=== PATIENT | female | born 1950 | race Caucasian/White ===

== ENCOUNTER 2019-09-18 12:52 | Outpatient (CLI) | payer MEDICARE, SELFPAY ==
--- NOTE | ~2019-09-18 | CT_ITS ---
CORRECTED REPORT ORDER CHANGE TITLE CHANGE 09/19/2019 [facility] [place]: CT LUNG SCREENING EXAM DATE: 09/18/2019 13:22 INDICATION: Personal history of nicotine dependence. TECHNIQUE: Spiral low dose CT of the chest without contrast. Axial, coronal and sagittal images were reviewed. The dose-length product (DLP) for this examination was 440.31 mGy-cm. The exposure was tailored according to patient size (auto mA exposure control), and iterative reconstruction (ASIR) was used as additional dose reduction technique. Comparison is made to prior examination from 08/29/2018. FINDINGS: Again there are several right basilar nodules up to 4 mm in size, stable consistent with noncalcified granulomata. Several calcified granulomas. There is mild emphysema and hyperinflation. Tracheobronchial tree is patent. There is no mediastinal, hilar or axillary lymphadenopathy. There are no pleural or pericardial effusions. There is no pneumothorax. Heart normal in size. There is moderate coronary arterial calcification, arterial sclerosis. There is small sliding gastroesophageal hiatal hernia. Cholecystectomy clips. Mild hepatic steatosis. Splenic granulomata. There is mild to moderate thoracic spondylosis without osteoblastic or osteolytic lesions identified. IMPRESSION: Lung-RADS category 2, benign appearance or behavior (<1% chance of malignancy); recommend continued LDCT screening in 1 year. Reviewed, dictated and finalized at location B. MTDD
--- NOTE | ~2019-09-18 | MM_ITS ---
EXAMINATION: MM screening yeni BI w juan alberto HISTORY: Screening mammogram TECHNIQUE: Craniocaudal and mediolateral oblique 3-D tomosynthesis images were obtained and synthetic 2-D images were generated. CAD analysis was submitted and interpreted. COMPARISON: 06/12/2018, 06/07/2017, 04/12/2015 bilateral digital screening mammogram examinations BREAST PARENCHYMAL COMPOSITION: The breasts are almost entirely fatty. FINDINGS: There is no evidence of suspicious mass, calcification, or architectural distortion to sugg est malignancy in either breast. There has been no suspicious interval change. IMPRESSION: 1. No mammographic evidence of malignancy. 2. Recommend routine screening mammography in one year. BI-RADS Category 1: Negative Reviewed, dictated and finalized at location A.
== END 2019-09-18 12:53 | disposition home or self-care (01) ==
LOC: CHSIMG 12:56
PROVIDERS: PCP Internal Medicine; Visit Provider Internal Medicine
DX: Z12.31 Encounter for screening mammogram for malignant neoplasm of breast (principal); Z12.2 Encounter for screening for malignant neoplasm of respiratory organs; Z87.891 Personal history of nicotine dependence
CPT/HCPCS: 71250; 77063; 77067; G0297

== ENCOUNTER 2019-09-19 08:06 | Outpatient (CLI) | payer MEDICARE, SELFPAY ==
[2019-09-19 09:21] LABS: Alanine Aminotransferase 26 U/L (14-59); Albumin Level 3.6 g/dL (3.4-5.0); Alkaline Phosphatase 60 U/L (46-116); Aspartate Amino Transferase 19 U/L (15-37); Bilirubin,Total 0.3 mg/dL (0.00-1.00); Blood Urea Nitrogen 16 mg/dL (7-18); Calcium 9.9 mg/dL (8.5-10.1); Carbon Dioxide 28 mmol/L (21-32); Chloride 102 mmol/L (98-108); Cholesterol 184 mg/dL (0-200); Estimated Glomerular Filt Rate 59; Glucose 146 mg/dL (70-99); HDL Direct 40 mg/dL (40-60); LDL Cholesterol Calculated 93 mg/dL (<130); Osmolality Calculated 294 mOsm/kg (285-295); Sodium 140 mmol/L (136-145); Total Protein 6.8 g/dL (6.4-8.2); Triglycerides 257 mg/dL (0-150)
== END 2019-09-19 08:07 | disposition home or self-care (01) ==
LOC: CHSLAB 08:08
PROVIDERS: PCP Internal Medicine; Visit Provider Internal Medicine
DX: E78.5 Hyperlipidemia, unspecified (principal); I10 Essential (primary) hypertension; R73.03 Prediabetes
CPT/HCPCS: 36415; 80053; 80061; 83036

== ENCOUNTER 2019-12-27 06:47 | Emergency (ER) | payer MEDICARE, SELFPAY ==
--- NOTE | ~2019-12-27 | XR_ITS ---
EXAMINATION: XR knee LT 2V EXAM DATE: 12/27/2019 07:51 INDICATION: General knee pain for one day. TECHNIQUE: Frontal and lateral projections of the left knee. Comparison is made to prior examination from 10/13/2016. FINDINGS: No joint effusion. There is moderate left knee patellofemoral and medial tibiofemoral comp artment primary osteoarthritis. There are no acute fractures or dislocations identified. There is no subcutaneous gas. The soft tissue is unremarkable. There are no radiopaque foreign bodies. IMPRESSION: Moderate left knee osteoarthritis. Reviewed, dictated and finalized at location A.
[2019-12-27 07:09] VITALS: BP 156/76; PULSE 91; RESP 20; TEMP 36.4; O2SAT 97
[2019-12-27] MEDS: KETOROLAC (*BKC) 60 MG/2 ML VIAL IM (07:47)
--- NOTE | 2019-12-27 08:06 | ED.LOWEXIN ---
HPI - Extremity Injury (Lower) General Chief Complaint: Extremity Injury, Lower Stated Complaint: L leg pain Source: patient and family Mode of arrival: ambulatory Limitations: no limitations History of Present Illness HPI Narrative: this is a 69-year-old female that presents with some pain that started earlier this morning behind her left knee, pain she rates at about fiber 6 while resting and increases with some with weight-bearing. Patient has a history of left knee replacement status post surgery remotely. There is no warmth or tenderness to her left lower leg no calf swelling no visible varicose veins no pitting edema no redness or swelling or tenderness in the calf area. There is some pain elicited behind the left knee that could represent Coats cyst. Patient has no history of cancers no fever chills is active, nonsmoker no known injury. MD complaint: knee injury (Left knee pain) Onset (ago): hour(s) Injury: Left: knee Type of Injury: unknown Place: home Severity: moderate Severity scale (1-10): 6 Relieving factors: immobilization Exacerbating factors: weight bearing Context: walking Associated symptoms: ambulatory Other symptoms: none Related Data Home Medications Medication Instructions Recorded Confirmed ascorbic acid (vitamin C) [Vitamin 1 g PO DAILY 12/27/19 12/27/19 C] aspirin [Aspirin Low Dose] 81 mg PO DAILY 12/27/19 12/27/19 nortriptyline 25 mg PO DAILY 12/27/19 12/27/19 omeprazole 20 mg PO DAILY 12/27/19 12/27/19 simvastatin 40 mg PO DAILY 12/27/19 12/27/19 spironolacton-hydrochlorothiaz 1 tablet PO DAILY 12/27/19 12/27/19 torsemide 20 mg PO PRN PRN 12/27/19 12/27/19 tramadol 50 mg PO Q6H PRN 12/27/19 12/27/19 verapamil 120 mg PO DAILY 12/27/19 12/27/19 Allergies Allergy/AdvReac Type Severity Reaction Status Date / Time No Known Allergies Allergy Unknown Unverified 06/13/17 07:32 Review of Systems Review of Systems: All systems reviewed & are unremarkable except as noted in HPI and below PMFSH Past Medical History Medical History HLD (hyperlipidemia) HTN (hypertension) Family History Family History Other Cerebrovascular accident Family history of arthritis Family history of heart disease in male family member before age 55 Social History Social History Smoking status: Current every day smoker Alcohol intake: never Exam Const: General: no acute distress and alert Orientation/consciousness: patient oriented x3 HENMT: Head: normal to inspection Eyes: Conjunctivae: conjunctivae normal Pupils: Equal, round and reactive pupils present EOM: EOMs intact bilaterally Neck: Neck: normal visual inspection, no lymphadenopathy and no meningeal signs Chest: Chest palpation & inspection: normal inspection of the chest Resp: Effort & Inspection: normal respiratory effort Auscultation: clear to auscultation bilaterally Cardio: Rate: regular rate Rhythm: regular rhythm GI: GI Palp: Yes Soft to palpation Auscultation: normal bowel sounds : General: Yes no CVA tenderness Skin: General skin exam: normal color Rashes: no rashes Other: calf measurements on the left is 53 cm and on the right is some 52cm, measured 10cm below the tibial tuberosity. Currently there is no calf pain or tenderness there is no warmth or redness. Pain is elicited posterior left knee with palpation with no radiation no varicose veins no pitting edema. Extrem: General: normal to inspection Psych: Mental Status: mental status grossly normal Course Course Emergency Course: Patient's pain level has decreased while just resting. Discussed x-ray findings that are consistent with moderate osteoarthritis of the left knee. Vital Signs Vital signs: Vital Signs Temperature 36.4 C 12/27/19 07:09 Pulse Rate 91 12/27/19 07:09 Respira
[2019-12-27 08:15] VITALS: BP 144/78; PULSE 81; RESP 20; TEMP 36.4; O2SAT 97
== END 2019-12-27 08:18 | disposition home or self-care (01) ==
PROVIDERS: Emergency Provider Emergency Medicine; PCP Internal Medicine
DX: M17.12 Unilateral primary osteoarthritis, left knee (principal); M71.22 Synovial cyst of popliteal space [Baker], left knee; E78.5 Hyperlipidemia, unspecified; I10 Essential (primary) hypertension; F17.200 Nicotine dependence, unspecified, uncomplicated
CPT/HCPCS: 73560; 96372; 99283; J1885

== ENCOUNTER 2020-01-02 11:24 | Outpatient (RCR) | payer MEDICARE, SELFPAY ==
--- NOTE | 2020-01-02 11:57 | PTOPEVAL ---
Thank you for referring Oralia Contreras to [facility].? The patient is scheduled to be seen for therapy? ____x/week for ___ weeks. Please review, sign, date and return this plan of care HAMILTON. I agree with and certify that the following plan of care is medically necessary. Referring Physician Date Admitting Provider: Attending Provider: Alverto Goldstein MD Referring Provider: *PT Outpatient Evaluation Start: 01/02/20 11:26 Freq: Status: Active Protocol: Document 01/02/20 11:30 RUST (Rec: 01/02/20 11:55 RUST [email or web address]) Therapy Assessment Status Assessment Status Assessment Status Evaluation Outpatient Past Medical History Cardiovascular History Hx Hypercholesterolemia Yes Hx Hypertension Yes Respiratory History Hx Chronic Obstructive Pulmonary Disease Yes (COPD) Gastrointestinal History Hx Appendectomy Yes Hx Cholecystectomy Yes Hx Gastroesophageal Reflux Disease Yes Musculoskeletal History Hx Joint Replacement Yes: Rt. hip replacement Hx Orthopedic Surgery Yes: hammer toes, Lt. shoulder rotator cuff Hx Spinal Surgery Yes: neck surgery HEENT History Hx Tonsillectomy Yes Reproductive History Hx Hysterectomy Yes Evaluation Information Problem Diagnosis L knee OA Onset 01/02/20 Subjective Information patient reports she has been Query Text:As Reported By Patient/ having pain in the knees for Family years. she reports she is trying to put off having a knee replacement. she reports she was in the ER on sunday this past week due to inability to bear weight on the L LE. she reports she has increased pain with standing and walking (greatest with walking). she reports she tries to avoid stairs and walks up and down them 1 step at a time. patient reports she has had x-rays of the L knee this past sunday while in the ER. she reports she did have a cortizone injection today. Prior Level of Function Comments Additional Prior Level of Function patient reports she is trying Comments to put off knee replacement as long as possible. she reports she has
== END 2020-01-23 09:59 | disposition home or self-care (01) ==
LOC: CHSPT 11:24
PROVIDERS: PCP Internal Medicine; Visit Provider Internal Medicine
DX: M17.10 Unilateral primary osteoarthritis, unspecified knee (principal)
CPT/HCPCS: 97014; 97110; 97161; G0283

== ENCOUNTER 2020-04-10 07:33 | Outpatient (CLI) | payer MEDICARE, SELFPAY ==
[2020-04-10 07:49] LABS: Basophils Absolute Auto 0.09 K/mm3 (0.00-0.10); Basophils Percent Auto 0.9 % (0.0-1.0); Eosinophils Absolute Auto 0.35 K/mm3 (0.02-0.50); Eosinophils Percent Auto 3.5 % (1.0-6.0); Hematocrit 41.1 % (35.0-42.0); Hemoglobin 13.1 g/dL (11.7-13.8); Immature Granulocyte Absolute 0.06 K/mm3 (0.00-0.00); Immature Granulocyte Percent A 0.6 % (0.0-0.0); Lymphocytes Absolute Auto 2.02 K/mm3 (1.10-4.50); Lymphocytes Percent Auto 20.3 % (18.0-42.0); Mean Corpuscular HGB Conc 31.9 g/dL (32.0-36.0); Mean Corpuscular Hemoglobin 26.4 pg (27.0-31.0); Mean Corpuscular Volume 82.7 fL (78.0-102.0); Mean Platelet Volume 10.8 fl (9.2-11.8); Monocytes Absolute Auto 0.54 K/mm3 (0.10-0.90); Monocytes Percent Auto 5.4 % (2.0-11.0); Neutrophils Absolute Auto 6.9 K/mm3 (1.7-7.2); Neutrophils Percent Auto 69.3 % (50.0-70.0); Platelet Count Result 294 K/mm3 (150-420); Red Blood Count 4.97 M/mm3 (4.20-5.40); Red Cell Distribution Width 14.7 % (11.6-14.4)
[2020-04-10 08:05] LABS: Add Urine Microscopic? NO; Appearance Urine Clear (Clear); Bilirubin Urine Negative (Negative); Blood Urine Negative (Negative); Color Urine Yellow (Yellow); Glucose Urine UA Negative (Negative); Ketones Urine Negative (Negative); Leukocyte Esterase Ur Negative (Negative); Nitrate Urine Negative (Negative); Protein Urine Negative (Negative); Urobilinogen Urine 0.2 mg/dL (0.2-1.0); pH Urine 6.5 (5.0-8.0)
[2020-04-10 08:27] LABS: Creatinine Urine 81.19 mg/dL (40-278); Microalbumin Urine Random < 13.0 mg/L
[2020-04-10 08:34] LABS: Alanine Aminotransferase 26 U/L (14-59); Albumin Level 3.7 g/dL (3.4-5.0); Alkaline Phosphatase 77 U/L (46-116); Anion Gap 6 mmol/L (8-16); Aspartate Amino Transferase 11 U/L (15-37); Bilirubin,Total 0.3 mg/dL (0.00-1.00); Blood Urea Nitrogen 17 mg/dL (7-18); Calcium 9.2 mg/dL (8.5-10.1); Carbon Dioxide 30 mmol/L (21-32); Chloride 101 mmol/L (98-108); Cholesterol 175 mg/dL (0-200); Estimated Glomerular Filt Rate 60; Glucose 149 mg/dL (70-99); HDL Direct 42 mg/dL (40-60); LDL Cholesterol Calculated 96 mg/dL (<130); Osmolality Calculated 288 mOsm/kg (285-295); Potassium 4.2 mmol/L (3.5-5.1); Sodium 137 mmol/L (136-145); Thyroid Stimulating Hormone 0.85 uIU/mL (0.36-3.74); Triglycerides 187 mg/dL (0-150)
[2020-04-14 12:14] LABS: Hemoglobin A1C 6.6 % (<5.7)
== END 2020-04-10 07:34 | disposition home or self-care (01) ==
LOC: CHSLAB 07:36
PROVIDERS: PCP Internal Medicine; Visit Provider Internal Medicine
DX: E78.5 Hyperlipidemia, unspecified (principal); E11.9 Type 2 diabetes mellitus without complications; I10 Essential (primary) hypertension
CPT/HCPCS: 36415; 80053; 80061; 81003; 82043; 83036; 84443; 85025

== ENCOUNTER 2020-09-20 11:47 | Outpatient (CLI) | payer MEDICARE, SELFPAY ==
--- NOTE | ~2020-09-20 | MM_ITS ---
EXAMINATION: MM screening yeni BI w juan alberto HISTORY: Screening TECHNIQUE: Craniocaudal and mediolateral oblique 3-D tomosynthesis images were obtained and synthetic 2-D images were generated. CAD analysis was submitted and interpreted. COMPARISON: Comparison to multiple prior studies sequentially, with oldest reviewed study dated 07/2012. BREAST PARENCHYMAL COMPOSITION: The breasts are almost entirely fatty. FINDINGS: There is no evidence of suspicious mass, calcification, or architectural distortion to sugg est malignancy in either breast. There has been no suspicious interval change. IMPRESSION: 1. No mammographic evidence of malignancy. 2. Recommend routine screening mammography in one year. BI-RADS Category 1: Negative Reviewed, dictated and finalized at location A.
== END 2020-09-20 11:48 | disposition home or self-care (01) ==
LOC: CHSIMG 11:50
PROVIDERS: PCP Internal Medicine; Visit Provider Internal Medicine
DX: Z12.31 Encounter for screening mammogram for malignant neoplasm of breast (principal)
CPT/HCPCS: 77063; 77067

== ENCOUNTER 2020-10-15 07:46 | Outpatient (CLI) | payer MEDICARE, SELFPAY ==
[2020-10-15 08:17] LABS: Hemoglobin A1C 6.7 % (<5.7)
[2020-10-15 09:15] LABS: Alanine Aminotransferase 25 U/L (14-59); Albumin Level 3.4 g/dL (3.4-5.0); Alkaline Phosphatase 66 U/L (46-116); Anion Gap 15 mmol/L (8-16); Aspartate Amino Transferase 17 U/L (15-37); Bilirubin,Total 0.4 mg/dL (0.00-1.00); Blood Urea Nitrogen 21 mg/dL (7-18); Calcium 9.1 mg/dL (8.5-10.1); Carbon Dioxide 24 mmol/L (21-32); Chloride 103 mmol/L (98-108); Cholesterol 170 mg/dL (0-200); Estimated Glomerular Filt Rate > 60; Glucose 139 mg/dL (70-99); HDL Direct 39 mg/dL (40-60); LDL Cholesterol Calculated 89 mg/dL (<130); Osmolality Calculated 299 mOsm/kg (285-295); Potassium 3.7 mmol/L (3.5-5.1); Sodium 142 mmol/L (136-145); Total Protein 6.4 g/dL (6.4-8.2); Triglycerides 209 mg/dL (0-150)
== END 2020-10-15 07:47 | disposition home or self-care (01) ==
LOC: CHSLAB 07:48
PROVIDERS: PCP Internal Medicine; Visit Provider Internal Medicine
DX: E11.9 Type 2 diabetes mellitus without complications (principal); I10 Essential (primary) hypertension; E78.5 Hyperlipidemia, unspecified
CPT/HCPCS: 36415; 80053; 80061; 83036

== ENCOUNTER 2021-04-21 07:49 | Outpatient (CLI) | payer MEDICARE, SELFPAY ==
[2021-04-21 08:10] LABS: Basophils Percent Auto 1.3 % (0.0-1.0); Hematocrit 41.2 % (35.0-42.0); Hemoglobin 13.2 g/dL (11.7-13.8); Immature Granulocyte Absolute 0.06 K/mm3 (0.00-0.00); Immature Granulocyte Percent A 0.8 % (0.0-0.0); Lymphocytes Absolute Auto 1.66 K/mm3 (1.10-4.50); Mean Corpuscular Volume 81.3 fL (78.0-102.0); Mean Platelet Volume 10.9 fl (9.2-11.8); Monocytes Absolute Auto 0.59 K/mm3 (0.10-0.90); Monocytes Percent Auto 7.8 % (2.0-11.0); Neutrophils Absolute Auto 4.8 K/mm3 (1.7-7.2); Neutrophils Percent Auto 64.1 % (50.0-70.0); Platelet Count Result 373 K/mm3 (150-420); Red Blood Count 5.07 M/mm3 (4.20-5.40); Red Cell Distribution Width 14.4 % (11.6-14.4); White Blood Count 7.6 K/mm3 (4.8-10.8)
[2021-04-21 08:25] LABS: Hemoglobin A1C 6.9 % (<5.7)
[2021-04-21 08:39] LABS: Alanine Aminotransferase 34 U/L (14-59); Albumin Level 3.2 g/dL (3.4-5.0); Alkaline Phosphatase 66 U/L (46-116); Anion Gap 9 mmol/L (8-16); Aspartate Amino Transferase 21 U/L (15-37); Bilirubin,Total 0.3 mg/dL (0.00-1.00); Blood Urea Nitrogen 18 mg/dL (7-18); Carbon Dioxide 27 mmol/L (21-32); Chloride 101 mmol/L (98-108); Cholesterol 153 mg/dL (0-200); Estimated Glomerular Filt Rate 55; Glucose 118 mg/dL (70-99); HDL Direct 41 mg/dL (40-60); LDL Cholesterol Calculated 87 mg/dL (<130); Osmolality Calculated 286 mOsm/kg (285-295); Potassium 4.1 mmol/L (3.5-5.1); Sodium 137 mmol/L (136-145); Total Protein 6.7 g/dL (6.4-8.2); Triglycerides 124 mg/dL (0-150); Uric Acid 6.7 mg/dL (2.6-6.0)
== END 2021-04-21 07:50 | disposition home or self-care (01) ==
LOC: CHSLAB 07:53
PROVIDERS: PCP Internal Medicine; Visit Provider Internal Medicine
DX: E78.5 Hyperlipidemia, unspecified (principal); I10 Essential (primary) hypertension; M10.9 Gout, unspecified; E11.9 Type 2 diabetes mellitus without complications
CPT/HCPCS: 36415; 80053; 80061; 83036; 84550; 85025

== ENCOUNTER 2021-04-25 12:41 | Outpatient (CLI) | payer MEDICARE, SELFPAY ==
--- NOTE | ~2021-04-25 | CT_ITS ---
EXAMINATION:CT lung screening DATE: 04/25/2021 13:01 INDICATION: Personal history of nicotine dependence. Smoker who quit 11 years ago with 36 pack year h istory. TECHNIQUE: Computed tomography (CT) of the chest was performed without intravenous contrast. Automate d exposure control and iterative reconstruction technique were employed. The dose-length product (DLP ) was 424.57 mGy-cm. COMPARISON: Chest CT 09/18/2019 FINDINGS: Again seen is a 4 mm nodule in right lower lobe. Again seen is a 5 mm nodule in right lower lobe. Again seen is a 6 mm nodule in right middle lobe. There are patchy groundglass opacities with septal thickening in all lobes, worst in the lower lobes. Calcified left lung nodules and calcified l eft hilar lymph nodes are consistent with old granulomatous disease. No pleural effusion. The heart s ize is normal. There are coronary artery calcifications. No pericardial effusion. There is a small sl iding hiatal hernia. Calcifications in the spleen are consistent with old granulomatous disease. Ther e are changes of cholecystectomy. There is diffuse hepatic steatosis. There is mild thoracic spondylo sis. IMPRESSION: 1. Lung-RADS category 2S: Benign appearance or behavior. Continue annual screening with noncontrast l ow-dose chest CT in 12 months. 2. New diffuse lung disease, likely COVID-19 pneumonia. Reviewed, dictated and finalized at location A. RDOUS MATERIALS ANALYST IMPRESSION: 1. Lung-RADS category 2S: Benign appearance or behavior. Continue annual screen ing with noncontrast low-dose chest CT in 12 months. 2. New diffuse lung disease, likely COVID-19 pneumonia.
== END 2021-04-25 12:42 | disposition home or self-care (01) ==
LOC: CHSIMG 12:43
PROVIDERS: PCP Internal Medicine; Visit Provider Internal Medicine
DX: Z12.2 Encounter for screening for malignant neoplasm of respiratory organs (principal); Z87.891 Personal history of nicotine dependence
CPT/HCPCS: 71271

== ENCOUNTER 2021-11-22 07:51 | Outpatient (CLI) | payer MEDICARE, SELFPAY ==
[2021-11-22 08:08] LABS: Basophils Absolute Auto 0.09 K/mm3 (0.00-0.10); Eosinophils Absolute Auto 0.36 K/mm3 (0.02-0.50); Eosinophils Percent Auto 4.1 % (1.0-6.0); Hematocrit 40.3 % (35.0-42.0); Hemoglobin 12.8 g/dL (11.7-13.8); Immature Granulocyte Absolute 0.06 K/mm3 (0.00-0.00); Immature Granulocyte Percent A 0.7 % (0.0-0.0); Lymphocytes Absolute Auto 2.33 K/mm3 (1.10-4.50); Lymphocytes Percent Auto 26.8 % (18.0-42.0); Mean Corpuscular HGB Conc 31.8 g/dL (32.0-36.0); Mean Corpuscular Hemoglobin 26.3 pg (27.0-31.0); Mean Corpuscular Volume 82.9 fL (78.0-102.0); Mean Platelet Volume 10.7 fl (9.2-11.8); Monocytes Absolute Auto 0.51 K/mm3 (0.10-0.90); Monocytes Percent Auto 5.9 % (2.0-11.0); Neutrophils Absolute Auto 5.3 K/mm3 (1.7-7.2); Neutrophils Percent Auto 61.5 % (50.0-70.0); Platelet Count Result 237 K/mm3 (150-420); Red Blood Count 4.86 M/mm3 (4.20-5.40); White Blood Count 8.7 K/mm3 (4.8-10.8)
[2021-11-22 08:16] LABS: Hemoglobin A1C 6.6 % (<5.7)
[2021-11-22 08:29] LABS: Alanine Aminotransferase 19 U/L (14-59); Albumin Level 3.3 g/dL (3.4-5.0); Alkaline Phosphatase 69 U/L (46-116); Anion Gap 6 mmol/L (8-16); Aspartate Amino Transferase 12 U/L (15-37); Bilirubin,Total 0.3 mg/dL (0.00-1.00); Blood Urea Nitrogen 21 mg/dL (7-18); Calcium 8.7 mg/dL (8.5-10.1); Carbon Dioxide 27 mmol/L (21-32); Chloride 104 mmol/L (98-108); Cholesterol 146 mg/dL (0-200); Estimated Glomerular Filt Rate > 60; Glucose 125 mg/dL (70-99); HDL Direct 37 mg/dL (40-60); LDL Cholesterol Calculated 67 mg/dL (<130); Osmolality Calculated 288 mOsm/kg (285-295); Potassium 3.7 mmol/L (3.5-5.1); Sodium 137 mmol/L (136-145); Total Protein 6.8 g/dL (6.4-8.2); Triglycerides 210 mg/dL (0-150)
== END 2021-11-22 07:52 | disposition home or self-care (01) ==
LOC: CHSLAB 07:54
PROVIDERS: PCP Internal Medicine; Visit Provider Internal Medicine
DX: E78.5 Hyperlipidemia, unspecified (principal); E11.9 Type 2 diabetes mellitus without complications; I10 Essential (primary) hypertension
CPT/HCPCS: 36415; 80053; 80061; 83036; 85025

== ENCOUNTER 2022-05-18 12:50 | Outpatient (CLI) | payer MEDICARE, SELFPAY ==
--- NOTE | ~2022-05-18 | CT_ITS ---
EXAMINATION:CT lung screening DATE: 05/18/2022 13:38 INDICATION: History of nicotine dependence. Smoker who quit 12 years ago with 36 pack year history. TECHNIQUE: Computed tomography (CT) of the chest was performed without intravenous contrast. Automate d exposure control and iterative reconstruction technique were employed. The dose-length product (DLP ) was 474.54 mGy-cm. COMPARISON: Chest CT 04/25/2021 FINDINGS: The lungs demonstrate mild atelectasis. There is mild emphysema. Again seen is a 5 mm nodul e in right lower lobe. Again seen is a 6 mm nodule in right middle lobe. Again seen is a 4 mm nodule in right lower lobe. Calcified left lung nodules and calcified left hilar lymph nodes are consistent with old granulomatous disease. No pleural effusion. The thyroid is enlarged. The heart size is beth l. There are coronary artery calcifications. No pericardial effusion. Main pulmonary artery is enlarg ed, consistent with pulmonary arterial hypertension. There is a small sliding hiatal hernia. Calcific ations in the spleen are consistent with old granulomatous disease. There are changes of cholecystect david. There is mild aortic atherosclerosis. There is mild thoracic spondylosis. IMPRESSION: 1. Lung-RADS category 2: Benign appearance or behavior. Continue annual screening with noncontrast lo w-dose chest CT in 12 months. Reviewed, dictated and finalized at location L. NOLOGY COACH IMPRESSION: 1. Lung-RADS category 2: Benign appearance or behavior. Continue annual screeni ng with noncontrast low-dose chest CT in 12 months.
--- NOTE | ~2022-05-18 | MM_ITS ---
EXAMINATION: MM screening yeni BI w juan alberto HISTORY: Screening mammogram TECHNIQUE: Craniocaudal and mediolateral oblique 3-D tomosynthesis images were obtained and synthetic 2-D images were generated. CAD analysis was submitted and interpreted. COMPARISON: 09/20/2020, 09/18/2019, 06/12/2018 bilateral screening mammogram examinations BREAST PARENCHYMAL COMPOSITION: The breasts are almost entirely fatty. FINDINGS: There is no evidence of suspicious mass, calcification, or architectural distortion to sugg est malignancy in either breast. There has been no suspicious interval change. IMPRESSION: 1. No mammographic evidence of malignancy. 2. Recommend routine screening mammography in one year. BI-RADS Category 1: Negative Reviewed, dictated and finalized at location A. E CUTTER AND SWAGER
== END 2022-05-18 12:51 | disposition home or self-care (01) ==
LOC: CHSIMG 12:52
PROVIDERS: PCP Internal Medicine; Visit Provider Internal Medicine
DX: Z12.31 Encounter for screening mammogram for malignant neoplasm of breast (principal); Z12.2 Encounter for screening for malignant neoplasm of respiratory organs; Z87.891 Personal history of nicotine dependence
CPT/HCPCS: 71271; 77063; 77067

== ENCOUNTER 2022-06-05 08:11 | Outpatient (CLI) | payer MEDICARE, SELFPAY ==
[2022-06-05 08:27] LABS: Basophils Absolute Auto 0.12 K/mm3 (0.00-0.10); Basophils Percent Auto 1.3 % (0.0-1.0); Eosinophils Percent Auto 4.5 % (1.0-6.0); Hematocrit 42.5 % (35.0-42.0); Hemoglobin 13.2 g/dL (11.7-13.8); Immature Granulocyte Absolute 0.04 K/mm3 (0.00-0.00); Immature Granulocyte Percent A 0.4 % (0.0-0.0); Lymphocytes Absolute Auto 2.06 K/mm3 (1.10-4.50); Mean Corpuscular HGB Conc 31.1 g/dL (32.0-36.0); Mean Corpuscular Volume 83.7 fL (78.0-102.0); Mean Platelet Volume 10.9 fl (9.2-11.8); Monocytes Absolute Auto 0.54 K/mm3 (0.10-0.90); Neutrophils Absolute Auto 5.8 K/mm3 (1.7-7.2); Neutrophils Percent Auto 64.8 % (50.0-70.0); Platelet Count Result 261 K/mm3 (150-420); Red Blood Count 5.08 M/mm3 (4.20-5.40); Red Cell Distribution Width 14.9 % (11.6-14.4)
[2022-06-05 08:39] LABS: Hemoglobin A1C 6.4 % (<5.7)
[2022-06-05 08:53] LABS: Creatinine Urine 184.43 mg/dL (40-278); Microalbumin Urine Random < 13.0 mg/L
[2022-06-05 09:30] LABS: Alanine Aminotransferase 28 U/L (14-59); Albumin Level 3.6 g/dL (3.4-5.0); Alkaline Phosphatase 75 U/L (46-116); Anion Gap 8 mmol/L (8-16); Aspartate Amino Transferase 15 U/L (15-37); Bilirubin,Total 0.4 mg/dL (0.00-1.00); Blood Urea Nitrogen 18 mg/dL (7-18); CRP 0.8 mg/dL (0.0-0.9); Calcium 9.1 mg/dL (8.5-10.1); Carbon Dioxide 29 mmol/L (21-32); Chloride 106 mmol/L (98-108); Cholesterol 146 mg/dL (0-200); Estimated Glomerular Filt Rate > 60; Glucose 133 mg/dL (70-99); HDL Direct 44 mg/dL (40-60); LDL Cholesterol Calculated 73 mg/dL (<130); Osmolality Calculated 299 mOsm/kg (285-295); Potassium 4.7 mmol/L (3.5-5.1); Sodium 143 mmol/L (136-145); Total Protein 6.8 g/dL (6.4-8.2); Triglycerides 147 mg/dL (0-150); Uric Acid 5.6 mg/dL (2.6-6.0)
== END 2022-06-05 08:12 | disposition home or self-care (01) ==
LOC: CHSLAB 08:13
PROVIDERS: PCP Internal Medicine; Visit Provider Internal Medicine
DX: I10 Essential (primary) hypertension (principal); E11.9 Type 2 diabetes mellitus without complications; E78.5 Hyperlipidemia, unspecified; M25.50 Pain in unspecified joint
CPT/HCPCS: 36415; 80053; 80061; 82043; 83036; 84550; 85025; 86140

== ENCOUNTER 2022-11-15 07:46 | Outpatient (CLI) | payer MEDICARE, SELFPAY ==
[2022-11-15 08:25] LABS: Hemoglobin A1C 6.4 % (<5.7)
[2022-11-15 08:48] LABS: Alanine Aminotransferase 15 U/L (14-59); Albumin Level 3.3 g/dL (3.4-5.0); Alkaline Phosphatase 79 U/L (46-116); Anion Gap 10 mmol/L (8-16); Aspartate Amino Transferase < 10 U/L (15-37); Bilirubin,Total 0.4 mg/dL (0.00-1.00); Blood Urea Nitrogen 16 mg/dL (7-18); Calcium 8.8 mg/dL (8.5-10.1); Carbon Dioxide 26 mmol/L (21-32); Chloride 105 mmol/L (98-108); Cholesterol 151 mg/dL (0-200); Estimated Glomerular Filt Rate 60; Glucose 147 mg/dL (70-99); HDL Direct 39 mg/dL (40-60); LDL Cholesterol Calculated 78 mg/dL (<130); Osmolality Calculated 296 mOsm/kg (285-295); Potassium 4.3 mmol/L (3.5-5.1); Sodium 141 mmol/L (136-145); Total Protein 6.2 g/dL (6.4-8.2); Triglycerides 172 mg/dL (0-150); Uric Acid 5.5 mg/dL (2.6-6.0)
== END 2022-11-15 07:47 | disposition home or self-care (01) ==
LOC: CHSLAB 07:48
PROVIDERS: PCP Internal Medicine; Visit Provider Internal Medicine
DX: I10 Essential (primary) hypertension (principal); E78.5 Hyperlipidemia, unspecified; E11.9 Type 2 diabetes mellitus without complications
CPT/HCPCS: 36415; 80053; 80061; 83036; 84550

== ENCOUNTER 2023-05-21 07:56 | Outpatient (CLI) | payer MEDICARE, SELFPAY ==
--- NOTE | ~2023-05-21 | MM_ITS ---
EXAMINATION: MM screening yeni BI w juan alberto HISTORY: Screening TECHNIQUE: Craniocaudal and mediolateral oblique 3-D tomosynthesis images were obtained and synthetic 2-D images were generated. CAD analysis was submitted and interpreted. COMPARISON: Comparison to multiple prior studies sequentially, with oldest reviewed study dated 09/20. BREAST PARENCHYMAL COMPOSITION: The breasts are almost entirely fatty. FINDINGS: There is no evidence of suspicious mass, calcification, or architectural distortion to sugg est malignancy in either breast. There has been no suspicious interval change. IMPRESSION: 1. No mammographic evidence of malignancy. 2. Recommend routine screening mammography in one year. BI-RADS Category 1: Negative Reviewed, dictated and finalized at location A. COLLECTOR
--- NOTE | ~2023-05-21 | CT_ITS ---
CT Scan of the Chest without Contrast: Clinical Indication: Lung cancer screening, personal history of nicotine dependence Technique: Contiguous sections were acquired throughout the chest without intravenous contrast. Dose reduction technique was used on this scan by utilizing automated exposure control and iterative recon struction technique. The dose-length product (DLP) was 346.15 mGy-cm. COMPARISON: 05/18/2022 Findings: There is no evidence of any significant mediastinal, hilar or axillary lymphadenopathy. Calcified lef t hilar lymph nodes are present. Coronary artery calcifications are present. There is no evidence of pleural or pericardial effusion. Stable 4 mm right lower lobe pulmonary nodule noted. Stable 5 mm right middle lobe pulmonary nodule. Calcified left lower lobe granulomas are present. Images through the upper abdomen reveal calcified splenic granulomas. Impression: Lung RADS 2: Benign appearance. 12 month follow-up screening CT advised. Reviewed, dictated and finalized at [facility]. OSONDE OPERATOR Impression: Lung RADS 2: Benign appearance. 12 month follow-up screening CT advised.
== END 2023-05-21 07:57 | disposition home or self-care (01) ==
LOC: CHSIMG 07:58
PROVIDERS: PCP Internal Medicine; Visit Provider Internal Medicine
DX: Z12.2 Encounter for screening for malignant neoplasm of respiratory organs (principal); Z87.891 Personal history of nicotine dependence; Z12.31 Encounter for screening mammogram for malignant neoplasm of breast
CPT/HCPCS: 71271; 77063; 77067

== ENCOUNTER 2024-04-09 12:11 | Emergency (ER) | payer MEDICARE, SELFPAY ==
[2024-04-09 12:12] VITALS: BP 172/66; PULSE 104; RESP 16; TEMP 36.4; O2SAT 98
--- NOTE | 2024-04-09 12:26 | ED_ITS ---
HPI - GI Bleed General Chief complaint: Abdominal Pain Stated complaint: SENT BY PMD Time Seen by Provider: 04/09/24 12:25 Source: patient Mode of arrival: ambulatory Limitations: no limitations History of Present Illness HPI Narrative: 73-year-old female with a history of hypertension, dyslipidemia, status post right hip and right shoulder surgery, status post cholecystectomy, appendectomy, colonoscopy presents to the ED with -- black tarry stools since this morning. No nausea /vomiting. No hematemesis. No abdominal pain. The patient has not had any alcohol recently. No history of nurse aid use other than baby aspirin. No prior history of GI bleeds. No chest pain or shortness of breath. MD complaint: other ( Melanotic stools) Onset (ago): day(s) ( 1 day) Pain Consistency: constant Relieving factors: none Exacerbating factors: none Context: hemorrhoids Associated symptoms: denies other symptoms Treatments Prior to Arrival: none Related Data Home Medications ?Medication ?Instructions ?Recorded ?Confirmed ?Last Taken ?Type ascorbic acid (vitamin C) 1,000 mg 1 g PO DAILY 12/27/19 12/27/19 Unknown History tablet (Vitamin C) aspirin 81 mg tablet,delayed 81 mg PO DAILY 12/27/19 12/27/19 Unknown History release (Calrita Low Dose Aspirin) nortriptyline 25 mg capsule 25 mg PO DAILY 12/27/19 12/27/19 Unknown History omeprazole 20 mg capsule,delayed 20 mg PO DAILY 12/27/19 12/27/19 Unknown History release simvastatin 40 mg tablet 40 mg PO DAILY 12/27/19 12/27/19 Unknown History spironolactone 25 1 tablet PO DAILY 12/27/19 12/27/19 Unknown History mg-hydrochlorothiazide 25 mg tablet torsemide 20 mg tablet 20 mg PO PRN PRN Edema 12/27/19 12/27/19 Unknown History tramadol 50 mg tablet 50 mg PO Q6H PRN Pain, Mild 12/27/19 12/27/19 Unknown History verapamil 120 mg tablet,extended 120 mg PO DAILY 12/27/19 12/27/19 Unknown History release Allergies Allergy/AdvReac Type Severity Reaction Status Date / Time No Known Allergies Allergy Unknown Unverified 04/09/24 12:24 Review of Systems 2 Review of Systems: All systems reviewed & are unremarkable except as noted in HPI and below Constitutional: Constitutional: Reports as per HPI and Reports no additional constitutional complaints Eyes: Eyes: Reports as per HPI and Reports no additional eye complaints ENT: Reports system reviewed and no additional complaints, except as documented and Reports as per HPI Cardiovascular: Cardiovascular: Reports as per HPI and Reports no additional cardiovascular complaints Respiratory: Respiratory: Reports as per HPI and Reports no additional respiratory complaints Gastrointestinal: Gastrointestinal: Reports as per HPI and Reports no additional gastrointestinal complaints Comments: black tarry stools Genitourinary: Genitourinary: Reports no additional female genitourinary complaints and Reports as per HPI Musculoskeletal: Musculoskeletal: Reports no additional musculoskeletal complaints and Reports as per HPI Integumentary/Breasts: Skin/Breast: Reports system reviewed and no additional complaints, except as docu and Reports as per HPI Neurologic: Reports system reviewed and no additional complaints, except as documented and Reports as per HPI Endocrine: Endocrine: Reports no additional endocrine complaints and Reports as per HPI Hematologic/Lymphatic: Hematologic/Lymphatic: Reports no additional hematologic/lymphatic complaints and Reports as per HPI Allergic/Immunologic: Allergic/Immunologic: Reports no additional allergic/immunologic complaints and Reports as per HPI [facility] Past Medical History Medical History (Updated 04/09/24 @ 13:34 by Luis M Franco MD) HLD (hyperlipidemia) HTN (hypertension) Family History Family History Other Cerebrovascular accident Family history of arthritis Family history of heart disease in male family member before age 55 Social History Social History Smoking status: Current every day smoker Alcohol intake: never Exam 2 Narrative: heart rate of 104. Afebrile. Blood pressure 172/66. Const: General: no acute distress Nutritional Appearance: well nourished Orientation/consciousness: patient oriented x3 Limitations: no limitations HENMT: Head: normal to inspection Ears: external ears normal F abi/Nose/Sinus: Normal external nose present Face and sinus: normal facial exam Mouth: Yes Normal oral and palatal mucosa present Throat: posterior oropharynx normal Eyes: Conjunctivae: conjunctivae normal Pupils: Equal, round and reactive pupils present EOM: EOMs intact bilaterally Direct Ophthalmoscopy: no photophobia Neck: Neck: normal visual inspection, no lymphadenopathy and no meningeal signs Chest: Chest palpation & inspection: normal inspection of the chest Resp: Effort & Inspection: normal respiratory effort Auscultation: clear to auscultation bilaterally Cardio: Rate: tachycardic Rhythm: regular rhythm GI: GI Palp: Yes Soft to palpation Auscultation: normal bowel sounds R ectal Exam: Abnormal stool present ( Greenish black stools. Patient is not on iron tablets) and hemorrhoids Other: No tenderness/ rigidity / rebound. : General: Yes no CVA tenderness Back/Spine/Pelvis: Back: no CVA tenderness Cervical Spine: collar present Skin: General skin exam: normal color Rashes: no rashes Wounds: no wounds Neuro: General: patient oriented x3, moves all extremities, no meningeal signs, no focal motor deficits and CN's II-XI intact bilaterally Cranial nerves: Yes Nystagmus not present Speech: normal speech Gait exam (Neuro): Normal gait present Extrem: General: normal to inspection and no clubbing, cyanosis or edema Psych: Mental Status: mental status grossly normal Affect: normal affect Attitude: cooperative Course Course Emergency Course: black tarry stools-- patient tested negative for blood in the stool. Normal blood counts. Normal PT PTT Vital Signs Vital signs: Vital Signs Oxygen Delivery Room Air 04/09/24 12:11 Temperature 36.4 C L 04/09/24 12:12 Pulse Rate 79 04/09/24 13:16 Respiratory Rate 23 H 04/09/24 13:16 Blood Pressure 138/67 04/09/24 13:16 Pulse Oximetry 97 04/09/24 13:16 Oxygen Delivery Room Air 04/09/24 12:12 MDM - GI Bleed MDM Narrative Medical decision making narrative: enteritis Differential Diagnosis Differential diagnosis: Likely infectious diarrhea and Lower gastrointestinal hemorrhage Lab Data Attestation: I reviewed the patient's lab results. 04/09/24 12:45 04/09/24 12:45 Labs: Lab Results 04/09/24 04/09/24 Range/Units 12:35 12:45 WBC 9.7 (4.8-10.8) K/mm3 RBC 5.30 (4.20-5.40) M/mm3 Hgb 13.9 H (11.7-13.8) g/dL Hct 43.9 H (35.0-42.0) % MCV 82.8 (78.0-102.0) fL MCH 26.2 L (27.0-31.0) pg MCHC 31.7 L (32-36) g/dL RDW 14.3 (11.6-14.4) % Plt Count 285 (150-420) K/mm3 MPV 11.3 (9.2-11.8) fl Immature Gran % (Auto) 0.4 H (0.0-0.0) % Neut % (Auto) 68.5 (50.0-70.0) % Lymph % (Auto) 22.0 (18.0-42.0) % [place] % (Auto) 5.9 (2.0-11.0) % Eos % (Auto) 2.5 (1.0-6.0) % Baso % (Auto) 0.7 (0.0-1.0) % Lymph # (Auto) 2.14 (1.10-4.50) K/mm3 [place] # (Auto) 0.57 (0.10-0.90) K/mm3 Eos # (Auto) 0.24 (0.02-0.50) K/mm3 Baso # (Auto) 0.07 (0.00-0.10) K/mm3 Abs Immat Gran (auto) 0.04 H (0.00-0.00) K/mm3 Absolute Neuts (auto) 6.68 (1.70-7.20) K/mm3 Absolute Nucleated RBC 0.00 (0.00-0.00) K/mm3 Nucleated RBC % 0.0 (0-0.0) % PT 10.4 (9.50-12.1) Seconds INR 0.9 APTT 25.9 (23.9-30.70) Sec Sodium 140 (136-145) mmol/L Potassium 4.1 (3.5-5.1) mmol/L Chloride 104 (98-108) mmol/L Carbon Dioxide 27 (21-32) mmol/L Anion Gap 9 (4-12) mmol/L BUN 17 (7-18) mg/dL Creatinine 1.19 H (0.55-1.02) mg/dL Estim Creat Clear Calc 52 ml/min Estimated GFR 45 L (59 - ) Glucose 113 H (70-99) mg/dL Calculated Osmolality 292 (285-295) mOsm/kg Calcium 9.1 (8.5-10.1) mg/dL Total Bilirubin 0.4 (0.00-1.00) mg/dL AST 13 L (15-37) U/L ALT 21 (14-59) U/L Alkaline Phosphatase 73 (46-116) U/L Troponin I 4.4 (0.00-60.4) ng/L Total Protein 7.2 (6.4-8.2) g/dL Albumin 3.5 (3.4-5.0) g/dL Stool Occult Blood Negative (Negative) Discharge Plan Discharge Clinical Impression: Enteritis, Acute renal insufficiency Patient Disposition: Home, Self-Care Condition: Stable Instructions: Antibiotic Form, Enteritis (ED) Patient Language: Martiniquais Prescriptions: No Action verapamil 120 mg tablet extended release 120 mg PO DAILY ascorbic acid (vitamin C) [Vitamin C] 1,000 mg Tablet 1 g PO DAILY torsemide 20 mg Tablet 20 mg PO PRN PRN (Reason: Edema) spironolacton-hydrochlorothiaz 25-25 mg tablet 1 tablet PO DAILY aspirin [Carlita Low Dose Aspirin] 81 mg Tablet,Delayed Release (Dr/Ec) 81 mg PO DAILY tramadol 50 mg Tablet 50 mg PO Q6H PRN (Reason: Pain, Mild) simvastatin 40 mg tablet 40 mg PO DAILY nortriptyline 25 mg capsule 25 mg PO DAILY omeprazole 20 mg capsule,delayed release(DR/EC) 20 mg PO DAILY Follow-up/Referrals: Alverto Goldstein MD [Primary Care Provider] - Time of Disposition: 13:34
[2024-04-09 12:31] VITALS: BP 146/58; PULSE 94; RESP 18; O2SAT 99
[2024-04-09 12:47] VITALS: BP 133/56; PULSE 89; RESP 26; O2SAT 97
[2024-04-09 12:52] LABS: Basophils Absolute Auto 0.07 K/mm3 (0.00-0.10); Basophils Percent Auto 0.7 % (0.0-1.0); Eosinophils Absolute Auto 0.24 K/mm3 (0.02-0.50); Eosinophils Percent Auto 2.5 % (1.0-6.0); Hematocrit 43.9 % (35.0-42.0); Hemoglobin 13.9 g/dL (11.7-13.8); Immature Granulocyte Absolute 0.04 K/mm3 (0.00-0.00); Immature Granulocyte Percent A 0.4 % (0.0-0.0); Lymphocytes Absolute Auto 2.14 K/mm3 (1.10-4.50); Mean Corpuscular HGB Conc 31.7 g/dL (32-36); Mean Corpuscular Hemoglobin 26.2 pg (27.0-31.0); Mean Corpuscular Volume 82.8 fL (78.0-102.0); Mean Platelet Volume 11.3 fl (9.2-11.8); Monocytes Absolute Auto 0.57 K/mm3 (0.10-0.90); Monocytes Percent Auto 5.9 % (2.0-11.0); Neutrophils Absolute Auto 6.68 K/mm3 (1.70-7.20); Neutrophils Percent Auto 68.5 % (50.0-70.0); Platelet Count Result 285 K/mm3 (150-420); Red Cell Distribution Width 14.3 % (11.6-14.4); White Blood Count 9.7 K/mm3 (4.8-10.8)
[2024-04-09 12:52] LABS: Occult Blood Negative (Negative)
[2024-04-09 13:01] VITALS: BP 125/55; PULSE 82; RESP 24; O2SAT 98
[2024-04-09 13:09] LABS: INR 0.9; Partial Thromboplastin Time 25.9 Sec (23.9-30.70); Prothrombin Time 10.4 Seconds (9.50-12.1)
[2024-04-09 13:13] LABS: Alanine Aminotransferase 21 U/L (14-59); Albumin Level 3.5 g/dL (3.4-5.0); Alkaline Phosphatase 73 U/L (46-116); Anion Gap 9 mmol/L (4-12); Aspartate Amino Transferase 13 U/L (15-37); Bilirubin,Total 0.4 mg/dL (0.00-1.00); Blood Urea Nitrogen 17 mg/dL (7-18); Calcium 9.1 mg/dL (8.5-10.1); Carbon Dioxide 27 mmol/L (21-32); Chloride 104 mmol/L (98-108); Estimated CRCL calculation 52 ml/min; Estimated Glomerular Filt Rate 45; Glucose 113 mg/dL (70-99); Osmolality Calculated 292 mOsm/kg (285-295); Potassium 4.1 mmol/L (3.5-5.1); Sodium 140 mmol/L (136-145); Total Protein 7.2 g/dL (6.4-8.2); Troponin I 4.4 ng/L (0.00-60.4)
[2024-04-09 13:16] VITALS: BP 138/67; PULSE 79; RESP 23; O2SAT 97
[2024-04-09 13:31] VITALS: BP 139/63; PULSE 78; RESP 23; O2SAT 97
--- NOTE | 2024-04-09 13:31 | PC.NURSE ---
PT IS LYING ON STRETCHER READING A BOOK AT THIS TIME. PT IS AWAITING RESULTS. SIG OTHER AT BEDSIDE. NAD NOTED. PT DENIES ANY NEEDS OR COMPLAINTS. WILL CONTINUE TO MONITOR.
== END 2024-04-09 13:45 | disposition home or self-care (01) ==
PROVIDERS: Emergency Provider Internal Medicine Critical Care Medicine; PCP Internal Medicine
DX: K52.9 Noninfective gastroenteritis and colitis, unspecified (principal); N28.9 Disorder of kidney and ureter, unspecified; I10 Essential (primary) hypertension; E78.5 Hyperlipidemia, unspecified; F17.200 Nicotine dependence, unspecified, uncomplicated
CPT/HCPCS: 36415; 80053; 82272; 84484; 85025; 85610; 85730; 99284

== ENCOUNTER 2024-05-23 11:15 | Outpatient (CLI) | payer MEDICARE, SELFPAY | END 2024-05-23 11:16 | disposition home or self-care (01) | LOC: CHSIMG 11:17 | PROVIDERS: PCP Internal Medicine; Visit Provider Internal Medicine | DX: Z12.2 Encounter for screening for malignant neoplasm of respiratory organs (principal); Z87.891 Personal history of nicotine dependence | CPT/HCPCS: 71271; 77063; 77067 ==

== ENCOUNTER 2024-06-13 07:48 | Outpatient (CLI) | payer MEDICARE, SELFPAY ==
--- NOTE | ~2024-06-13 | DEXA_ITS ---
Bone Density Report Name: ISAIAS ROBB Age: 73 Sex: Female Ethnicity: White Date of : 1950 Indication: postmenopausal; screening for osteoporosis; prior fracture; hysterectomy; Referring Provider: Alverto Goldstein Study: Bone densitometry was performed. Exam Date: June 13, 2024 Accession number: [id number] Bone Density: Region BMD T-score Z-score Classification AP Spine(L2, L3, L4) 1.249 1.5 3.8 Normal Femoral Neck (Left) 0.731 -1.1 0.8 Osteopenia Total Hip (Left) 1.009 0.6 2.1 Normal World Health Organization criteria for BMD impression classify patients as: Normal (T-score at or above -1.0), Osteopenia (T-score between -1.0 and -2.5), or Osteoporosis (T-score at or below -2.5). 10-year Fracture Risk: FRAX not reported because: Prior hip or vertebral fracture Clinical Information Provided by Patient: Have had a previous hip or vertebral fracture Has had a low trauma fracture Has used the following medications: Vitamin D Has the following medical conditions: Hysterectomy Patient maximum height was 67 Menopause Age: 52 No regular weight bearing exercise Drinks caffeinated beverages Onset of menses at age 11 Number of children 4 Impression: The patient has low bone mass, based on the Left Femoral Neck T-score. The patient has risk factors, including: previous fracture. Discussion: INCREASED RISK OF FRACTURE DUE TO HISTORY OF FRACTURE. The patient's previous fracture puts the patient at high risk of a future fracture. In untreated patients, the risk of osteoporotic fracture increases approximately two-fold for each 1.0 SD decrease in T-score. Low bone density is not the only risk factor for fracture; also consider factors such as patient's age, frailty or poor health, risk of falling, risk of injury, previous osteoporotic fracture, family history of osteoporosis, cigarette smoking, low body weight, etc. Not everyone with a low trauma fracture has osteoporosis; osteomalacia and other metabolic bone disorders should also be considered. Patients who have osteoporosis should be evaluated for specific diseases and conditions (secondary causes) that may cause or contribute to bone loss and fracture risk. National Osteoporosis Foundation (NOF) recommends pharmacologic intervention for patients with a prior hip or vertebral fracture regardless of BMD T-score. The patient should follow a healthful lifestyle (good nutrition with adequate calcium and vitamin D, and appropriate weight-bearing exercise). Follow-Up: Consider a repeat BMD and Vertebral Fracture Assessment (VFA) exam in 2 years or sooner if medically necessary, to reassess this patient's status. Reported by: CALOS on 06/13/2024 8:17:00 AM. Reviewed, dictated and finalized at location A.
--- OUTSIDE RECORDS SUMMARY | 2024-06-13 07:54 | XMS_ITS | Clinical Summary ---
Author Organization [facility] Address [address] [place] [address] Care Team Providers Care Radioisotope Production Operator Name Role Phone Unavailable Primary Care Provider Unavailabl e Social History Tobacco Use Types Packs/Day Years Used Date Smoking Tobacco: Never Assessed Comments Unknown Sex and Gender Information Value Date Recorded Sex Assigned at Not on file Legal Sex Female 10:51 PM CDT Gender Identity Not on file Sexual Orientation Not on file Plan of Treatment Health Maintenance Due Date Last Done Comments Colorectal Cancer Screening Colonoscopy (10 Years) 1950 Hepatitis C 1970 DTaP, Tdap and Td Vaccines ( 1 - Tdap) 10/19/1971 Mammogram Screening 1992 Zoster Vaccines (1 of 2) 2002 Dexa Scan (General) 2017 Pneumococcal Vaccine: 65+ Ye ars (1 of 1 - PCV) 2017 COVID-19 Vaccine (2023-2 5 season) 2023 Influenza Adult (#1) 2023 RSV Immunization or 60+ Years (1 - 1-dose 75+ series) 10/19/2027 Meningococcal B Vaccine Aged Out No l onger eligible based on patient's age to complete this topic Meningococcal Vaccine Aged Out No caleb roselia eligible based on patient's age to complete this topic RSV Immunizations Under 20 Months Aged Out No longer eligible based on patient's age to complete this topic
--- OUTSIDE RECORDS SUMMARY | 2024-06-13 07:54 | XMS_ITS | Clinical Summary ---
Author Organization [facility] [employer] Address [address] [place] [address] Care Team Providers Care Protector Plate Attacher Name Role Phone Unavailable Primary Care Provider Unavailabl e Source Comments [facility] [employer],non-owned Affiliates and Associated Physician Practices is amultiple site organization consisting of ambulatory clinics and hospital sitesin [place], [place], [place] and [place]. This disclosure is being madepursuant to the Care Everywhere program and may not contain all information available regarding this patient. Last updated 17.[facility] [employer] Social History Tobacco Use Types Packs/Day Years Used Date Smoking Tobacco: Never Assessed Sex and Gender Information Value Date Recorded Sex Assigned at Not on file Gender Identity Not on file Sexual Orientation Not on file Plan of Treatment Health Maintenance Due Date Last Done Comments BONE DENSITY TESTING 1950 COLOGUARD (AGES 45-75) - COL ON CA SCREENING 1950 COLON MONITORING 1950 COLONOSCOPY - COLON CA SCREENING 1950 CT COLONOGRAPHY - COLON CA SCREENING 1950 Colorectal Cancer Screening 1950 FIT - COLON CA SCREENING 1950 FLEX SIG - COLON CA SCREENING 1950 LIPID TESTING 1950 MAMMOGRAM 1950 HEPATITIS C SCREENING 10/14/1970 DTAP/TDAP/TD VACCINES (1 - Tdap) 10/19/1971 PNEUMOCOCCAL VACCINE 50+ (1 of 1 - PCV) 2002 ZOSTER VACCINE (1 of 2) 2002 COVID-19 VACCINE ( - 2023-2 5 season) 2023 INFLUENZA VACCINE (#1) 2023 DEPRESSION SCREENING 03/26/2024 Respiratory Syncytial Virus (RSV) Vaccine Pt: or over 60 yrs (1 - 1-dose 75+ series) 10/19/2027 HEPATITIS B VACCINE Aged Out No longe r eligible based on patient's age to complete this topic HIB VACCINE Aged Out No longer eligi ble based on patient's age to complete this topic HPV VACCINE Aged Out No longer eligi ble based on patient's age to complete this topic MENINGOCOCCAL (Group B) VACC INE SHARED DECISION-MAKING Aged Out No longer eligibl e based on patient's age to complete this topic MENINGOCOCCAL GROUPS A/C/Y/W VACCINE Aged Out No longer eligible b ased on patient's age to complete this topic
--- OUTSIDE RECORDS SUMMARY | 2024-06-13 07:55 | XMS_ITS | Encounter Summary ---
Author Organization [facility] Address [address] [place] [address] Care Team Providers Care Graphics Specialist Name Role Phone Unavailable Primary Care Provider Unavailabl e Encounter Details Date Type Department Care Team (Late st Contact Info) Description 08/31/2018 Abstract SFL CONVERSION [address] [place] [address] , Generic Conversion, Social History Tobacco Use Types Packs/Day Years Used Date Smoking Tobacco: Never Assessed Comments Unknown Sex and Gender Information Value Date Recorded Sex Assigned at Not on file Legal Sex Female 10:51 PM CDT Gender Identity Not on file Sexual Orientation Not on file documented as of this encounter Plan of Treatment Not on file documented as of this encounter Visit Diagnoses Not on filedocumented in this encounter
== END 2024-06-13 07:49 | disposition home or self-care (01) ==
LOC: CHSIMG 07:50
PROVIDERS: PCP Internal Medicine; Visit Provider Internal Medicine
DX: Z78.0 Asymptomatic menopausal state (principal); M85.88 Other specified disorders of bone density and structure, other site
CPT/HCPCS: 77080

== ENCOUNTER 2024-08-04 10:42 | Outpatient (CLI) | payer MEDICARE, SELFPAY ==
--- OUTSIDE RECORDS SUMMARY | 2024-08-04 11:07 | XMS_ITS | Encounter Summary ---
Author Organization [facility] Address [address] [place] [address] Care Team Providers Care Slitting Machine Operator Helper Name Role Phone Unavailable Primary Care Provider Unavailabl e Encounter Details Date Type Department Care Team (Late st Contact Info) Description 08/31/2018 Abstract SFL CONVERSION [address] [place] [address] , Generic Conversion, Social History Tobacco Use [...]
--- OUTSIDE RECORDS SUMMARY | 2024-08-04 11:07 | XMS_ITS | Clinical Summary ---
Author Organization [facility] Address [address] [place] [id number] Care Team Providers Care Chief Cruiser Name Role Phone Unavailable Primary Care Provider [...] 1 - Tdap) 10/19/1971 Mammogram Screening 1992 Pneumococcal Vaccine: 50+ Ye ars (1 of 1 - PCV) 2002 Zoster Vaccines (1 of 2) 2002 Dexa Scan (General) 2017 COVID-19 Vaccine ( - 2023-2 5 season) 2023 RSV Immunization or 60+ Years (1 [...]
--- OUTSIDE RECORDS SUMMARY | 2024-08-04 11:07 | XMS_ITS | Clinical Summary ---
Author Organization [facility] [employer] Address [address] [place] [address] Care Team Providers Care Auricular Acupuncturist Name Role Phone Unavailable Primary Care Provider Unavailabl e Source Comments [facility] [employer],non-owned Affiliates and Associated Physician Practices is amultiple site organization consisting of ambulatory clinics and hospital sitesin [place], [place]. This disclosure is being madepursuant to the Care Everywhere program and may not contain all information available regarding this patient. Last updated 17.[facility] [employer] Social History Tobacco Use Types Packs/Day Years Used Date Smoking Tobacco: Never Assessed Comments Unknown Sex and Gender Information Value Date Recorded Sex Assigned at Not on file Legal Sex Female 3:17 PM CDT Gender Identity Not on file [...] VACCINE ( - 2023-2 5 season) 2023 DEPRESSION SCREENING 03/26/2024 INFLUENZA VACCINE (Season Ended) 2024 Respiratory Syncytial Virus (RSV) Vaccine Pt: or [...]
[2024-08-04 13:23] LABS: Basophils Absolute Auto 0.1 K/mm3 (0.0-0.1); Basophils Percent Auto 1.3 % (0.2-1.2); Eosinophils Absolute Auto 0.3 K/mm3 (0-0.3); Eosinophils Percent Auto 2.7 % (0-4.4); Hematocrit 45.3 % (37.0-47.0); Hemoglobin 14.3 g/dL (12.0-15.0); Immature Granulocyte Absolute 0.05 K/mm3 (0.00-0.031); Immature Granulocyte Percent A 0.5 % (0-0.5); Lymphocytes Absolute Auto 2.97 K/mm3 (0.9-3.2); Lymphocytes Percent Auto 29.4 % (18.3-44.2); Mean Corpuscular HGB Conc 31.6 g/dl (32-36); Mean Corpuscular Hemoglobin 27.1 pg (26-34); Mean Platelet Volume 11.1 fl (7.4-10.4); Monocytes Absolute Auto 0.6 K/mm3 (0.1-0.6); Monocytes Percent Auto 5.7 % (2.6-8.5); Neutrophils Absolute Auto 6.1 K/mm3 (1.3-6.7); Neutrophils Percent Auto 60.4 % (45.5-73.1); Platelet Count Result 267 k/mm3 (150-375); Red Blood Count 5.27 M/mm3 (4.2-5.4); Red Cell Distribution Width 14.7 % (11.5-14.5); White Blood Count 10.1 K/mm3 (4.5-10.0)
[2024-08-04 13:32] LABS: Albumin Level 4.5 g/dL (3.5-5.1); Anion Gap 11 mmol/L (4-12); Blood Urea Nitrogen 15 mg/dL (7-17); Calcium 9.6 mg/dL (8.4-10.2); Carbon Dioxide 27 mmol/L (22-30); Chloride 102 mmol/L (98-107); Estimated Glomerular Filt Rate 55; Glucose 87 mg/dL (65-110); Sodium 140 mmol/L (137-145)
[2024-08-04 13:35] LABS: Urine Cotinine NEGATIVE
[2024-08-04 13:37] LABS: Hemoglobin A1C 5.2 % (<5.7)
== END 2024-08-04 10:43 | disposition home or self-care (01) ==
LOC: ANHSURGERY 10:49
PROVIDERS: PCP Internal Medicine; Visit Provider Orthopaedic Surgery
DX: Z01.812 Encounter for preprocedural laboratory examination (principal); M17.12 Unilateral primary osteoarthritis, left knee
CPT/HCPCS: 80048; 80307; 82040; 83036; 85025; 87081

== ENCOUNTER 2024-08-04 10:57 | Outpatient (CLI) | payer MEDICARE, SELFPAY ==
--- NOTE | ~2024-08-04 | XR_ITS ---
Clinical Indication: Preprocedural clearance PA and lateral views of the chest: Comparison: 07/30/2015 Findings: The lungs are clear, without evidence of focal consolidation or pleural effusion. Cardiome diastinal silhouette is within normal limits. Bones and soft tissues are unremarkable. Impression: Normal chest. Reviewed, dictated and finalized at [facility]. Impression: Normal chest.
[2024-08-04 14:30] LABS: Add Urine Microscopic? YES; Appearance Urine Cloudy (Clear); Bacteria Urine 4+ /hpf; Bilirubin Urine Negative (Negative); Blood Urine Negative (Negative); Color Urine Dark Yellow (Yellow); Glucose Urine UA Negative (Negative); Ketones Urine Negative (Negative); Leukocyte Esterase Ur 1+ LEU/UL (Negative); Need Manual Microscopic Reviewed; Nitrate Urine Negative (Negative); Non Pathogenic Casts 0-2; Protein Urine Negative (Negative); RBC Urine 0-2 /hpf (0-2); Specific Grav Ur 1.019 (1.001-1.035); Squamous Epithelial Cell Urine Many /hpf (Few); Urobilinogen Urine 0.2 mg/dL (<2.0); pH Urine 6.5 (5.0-9.0)
== END 2024-08-04 10:58 | disposition home or self-care (01) ==
PROVIDERS: PCP Internal Medicine; Visit Provider Internal Medicine
DX: Z01.818 Encounter for other preprocedural examination (principal)
CPT/HCPCS: 71046; 81001

== ENCOUNTER 2024-08-20 07:17 | Outpatient (CLI) | payer MEDICARE, SELFPAY ==
--- NOTE | ~2024-08-20 | NM_ITS ---
EXAMINATION: NM liliana stress w perfusion DATE: 08/20/2024 12:58 INDICATION: Encounter for preprocedural cardiovascular exam TECHNIQUE: Rest images were obtained following intravenous administration of 11 mCi Tc99m tetrofosmin (Myoview). The patient was infused intravenously with Lexiscan (Regadenoson). Then, 32.7 mCi Tc99m t etrofosmin (Myoview) was administered intravenously, and stress images were obtained. Data was recons tructed into short axis and horizontal and vertical long axis SPECT images. Gated SPECT images were a lso obtained. COMPARISON: None. FINDINGS: No nonreversible perfusion defect involving the basilar anterolateral segment and a portion of the mid anteroseptal segment consistent with infarct. There is intervening partially reversible m ixed ischemia and infarct involving the mid anterior and mid anterolateral segments with small amount of reversible ischemia extending into the adjacent anteroapical and lateral apical segments. There is normal left ventricular chamber size, wall motion and ejection fraction. Left ventricular ejectio n fraction measures 70%. IMPRESSION: 1. Moderate-sized region of mild to moderate mixed ischemia and infarct involving portions of the lef t anterior descending and circumflex coronary artery vascular distributions as detailed above. 2. Left ventricular ejection fraction measuring 70%. Reviewed, dictated and finalized at location A. IMPRESSION: 1. Moderate-sized region of mild to moderate mixed ischemia and infarct involvi ng portions of the left anterior descending and circumflex coronary artery vasc ular distributions as detailed above. 2. Left ventricular ejection fraction measuring 70%.
--- OUTSIDE RECORDS SUMMARY | 2024-08-20 07:22 | XMS_ITS | Clinical Summary ---
Author Organization [facility] [email or web address] Address [address] [place] [address] Care Team Providers Care Calender Tender Name Role Phone Unavailable Primary Care Provider Unavailabl e Source Comments [facility] [email or web address],non-owned Affiliates and Associated Physician Practices is amultiple site organization consisting of ambulatory clinics and hospital sitesin [place], [place], [place] and [place]. This disclosure is being madepursuant to the Care Everywhere program and may not contain all information available regarding this patient. Last updated 17.[facility] [email or web address] Social History Tobacco Use Types Packs/Day Years [...]
--- NOTE | 2024-08-20 07:27 | EST_ITS ---
Patient Info Name: Kobi Contreras Age: 73 years : 1950 Gender: Female Ht: 66 in Wt: 243 lbs BSA: 2.32 m2 HR: 72 bpm BP: 123 / 62 mmHg Exam Date: 08/20/2024 7:27 AM Patient Status: O Admit Date: 08/20/2024 Exam Type: CA stress liliana w NM A regadenoson stress test was performed. Staff Referring Physician: Vance Tamayo DO Attending Provider: Vance Tamayo DO Exercise Technologist: Jaja Valles Exercise Physician: Vance Tamayo DO Summary 1. 1. Negative lexiscan stress test for ischemic ST changes by ECG criteria. 2. 2. Stable hemodynamics throughout the test. 3. 3. Nuclear scan to follow and will be reported separately. Please correlate with it. 4. 4. Patient informed of the above results. Protocol: Lexiscan Stress ECG Details Stage: REST Duration (min): 1 min : 6 sec HR (bpm): 71 SBP (mmHg): 123 DBP (mmHg): 62 Stage: REST Duration (min): 5 min : 31 sec HR (bpm): 73 SBP (mmHg): 123 DBP (mmHg): 62 Stage: STAGE 1 Duration (min): 0 min : 59 sec HR (bpm): 78 SBP (mmHg): 123 DBP (mmHg): 62 Stage: RECOVERY Duration (min): 1 min : 0 sec HR (bpm): 86 SBP (mmHg): 123 DBP (mmHg): 62 Stage: RECOVERY Duration (min): 2 min : 0 sec HR (bpm): 84 SBP (mmHg): 123 DBP (mmHg): 62 Stage: RECOVERY Duration (min): 3 min : 0 sec HR (bpm): 82 SBP (mmHg): 124 DBP (mmHg): 64 Stage: RECOVERY Duration (min): 3 min : 32 sec HR (bpm): 80 SBP (mmHg): 124 DBP (mmHg): 64 Rest HR: 73 bpm Peak HR: 87 bpm Rest Sys BP: 123 mmHg Peak Sys BP: 124 mmHg Max Pred HR: 149 bpm % Max Pred HR: 58 % Target HR: 127 bpm Max RPP: 10,788 bpm*mmHg Termination Reason: Completed protocol Cardiac Symptoms: None Total Time: 1 min : 0 sec Rest West BP: 62 mmHg Peak West BP: 64 mmHg Total Dose: 0.4 mg Resting ECG Sinus rhythm. Stress ECG No ST changes. Arrhythmias None. Report Signatures
--- NOTE | 2024-08-20 07:29 | ECHO_ITS ---
Patient Info Name: Kobi Contreras Age: 73 years : 1950 Gender: Female Ht: 64 in Wt: 243 lbs BSA: 2.29 m2 HR: 82 bpm BP: 145 / 90 mmHg Technical Quality: Good Exam Date: 08/20/2024 10:14 AM Patient Status: O Admit Date: 08/20/2024 Exam Type: CA echo doppler color flow Complete two-dimensional, color flow and Doppler transthoracic echocardiogram is performed. Staff Referring Physician: Vance Tamayo DO Electronic Drafter: Mariaa Bansal Attending Provider: Vance Tamayo DO Summary 1. Complete two-dimensional, color flow and Doppler transthoracic echocardiogram is performed. 2. Left ventricular chamber dimension is normal. 3. Left ventricular systolic function is normal, estimated at 60-65. 4. The left ventricular diastolic function is grade I diastolic dysfunction. 5. E/e' 11 is mildly elevated. 6. The mitral valve has a mildly calcified annulus. 7. There is trace tricuspid valve regurgitation. 8. No pulmonary hypertension, estimated pulmonary arterial systolic pressure is 29 mmHg. Left Ventricle E/e' 11 is mildly elevated. Left ventricular chamber dimension is normal. Left ventricular systolic function is normal, estimated at 60-65. The left ventricular diastolic function is grade I diastolic dysfunction. Right Ventricle Right ventricular chamber dimension is normal. Right ventricular systolic function is normal and with normal TAPSE 1.8 cm. Left Atria Left atrial chamber dimension is normal. Right Atria Right atrial chamber dimension is normal. Aortic Valve The aortic valve is trileaflet. There is no aortic valve stenosis. There is no aortic valve regurgitation. Pulmonic Valve There is no pulmonic regurgitation. Mitral Valve The mitral valve has a mildly calcified annulus. There is no mitral valve stenosis. There is no mitral valve regurgitation. Tricuspid Valve There is trace tricuspid valve regurgitation. No pulmonary hypertension, estimated pulmonary arterial systolic pressure is 29 mmHg. Pericardium/Pleural There is no pericardial effusion. Inferior Vena Cava Normal inferior vena cava with >50% collapse upon inspiration consistent with normal right atrial pressure, 5 mmHg. Aorta The aortic root size at the sinus of Valsalva is normal. Left Ventricular Outflow Tract Name Value Normal LVOT 2D LVOT Diameter 1.9 cm LVOT Doppler LVOT Peak Velocity 95 cm/s LVOT Peak Gradient 4 mmHg LVOT Mean Gradient 2 mmHg LVOT VTI 24 cm LVOT VTI/AV VTI Ratio 0.7 LVOT Stroke Volume 68 ml LVOT CO 12.2 l/min LVOT CI 5.3 l/min/m2 Pulmonic Valve Name Value Normal PV Doppler PV Peak Velocity 92 cm/s PV Peak Gradient 3 mmHg Mitral Valve Name Value Normal MV Diastolic Function MV E Peak Velocity 85 cm/s MV A Peak Velocity 154 cm/s MV E/A 0.6 MV Decel Time (PW) 461 ms MV Annular TDI MV E/e' (Septal) 15.1 MV E/e' (Lateral) 9.2 MV E/e' (Average) 12.1 Tricuspid Valve Name Value Normal TV Regurgitation Doppler TR Peak Velocity 247 cm/s TR Peak Gradient 24 mmHg Estimated PAP/RSVP RA Pressure 5 mmHg <=5 PA Systolic Pressure 29 mmHg <36 RV Systolic Pressure 29 mmHg <36 TV Annular TDI TV Lateral Carlotta s' Velocity 11.7 cm/s >=9.5 Aorta Name Value Normal Ascending Aorta Ao Root Diameter (MM) 2.8 cm Ao Root Diam Index (MM) 1.2 cm/m2 Aortic Valve Name Value Normal AV Doppler AV Peak Velocity 183 cm/s AV Peak Gradient 13 mmHg AV Mean Gradient 7 mmHg AV VTI 34 cm AV Area (Cont Eq VTI) 2.0 cm2 >=3.0 AV Area (Cont Eq Dom) 1.5 cm2 AV DI (Dom) 0.52 AV Regurgitation 2D LVOT Area 2.9 cm2 Ventricles Name Value Normal LV Dimensions 2D/MM IVS Diastolic Thickness (2D) 1.0 cm 0.6-1.0 LVID Diastole (2D) 4.3 cm 3.8-5.2 LVIW Diastolic Thickness (2D) 1.0 cm 0.6-0.9 LVID Systole (2D) 2.7 cm 2.2-3.5 LVOT Diameter 1.9 cm LV Mass (2D Cubed) 141.22 g 67.00-162.00 LV Mass Index (2D Cubed) 62 g/m2 43-95 Relative Wall Thickness (2D) 0.47 <=0.42 LV Fractional Shortening/Ejection Fraction 2D/MM LV Fractional Shortening (2D) 38 % 27-45 LV EF (2D Teichholz) 69 % LV Diastolic Volume (4C MOD) 70 ml LV EF (4C MOD) 65 % LV Diastolic Volume (2C MOD) 102 ml LV EF (2C MOD) 69 % LV Diastolic Volume (BP MOD) 88 ml 46-106 LV Diastolic Volume Index (BP MOD) 39 ml/m2 29-61 LV Systolic Volume (BP MOD) 28 ml 14-42 LV Systolic Volume Index (BP MOD) 12 ml/m2 8-24 LV EF (BP MOD) 68 % 54-74 LV Diastolic Length (4C) 7.1 cm LV Systolic Length (4C) 5.7 cm LV Stroke Volume (4C MOD) 46 ml RV Dimensions 2D/MM RVID Diastole (2D) 3.5 cm 2.1-3.5 Atria Name Value Normal LA Dimensions LA Dimension (MM) 3.7 cm 2.7-3.8 LA Volume (4C A-L) 54 ml LA Volume (BP A-L) 54 ml RA Dimensions RA Systolic Major Wilburn Length (4C) 5.3 cm 2.2-2.8 RA Area (4C) 14.1 cm2 <=18.0 Report Signatures
== END 2024-08-20 07:18 | disposition home or self-care (01) ==
PROVIDERS: PCP Internal Medicine; Visit Provider Internal Medicine Cardiovascular Disease
DX: Z01.810 Encounter for preprocedural cardiovascular examination (principal); I21.02 ST elevation (STEMI) myocardial infarction involving left anterior descending coronary artery; I21.21 ST elevation (STEMI) myocardial infarction involving left circumflex coronary artery; I50.30 Unspecified diastolic (congestive) heart failure; I34.81 Nonrheumatic mitral (valve) annulus calcification
CPT/HCPCS: 78452; 93017; 93306; A9502; J2785